=== PATIENT | male | born 1970 | race Caucasian/White ===

== ENCOUNTER 2018-02-05 01:18 | Emergency (ER) | payer BC ==
[2018-02-05] MEDS ORDERED: SODIUM CHLORIDE 0.9% 1,000 ML IV STA (01:24)
[2018-02-05] MEDS ORDERED: MECLIZINE 12.5 MG TAB PO STA (01:25)
[2018-02-05 02:02] LABS: Glucose,Whole Blood 135 mg/dL (75-99)
[2018-02-05 02:05] LABS: Basophils % (A) 0 %; Eosinophils # (A) 0.2 k/uL (0-0.7); Eosinophils % (A) 2 %; HCT 42.4 % (39.0-53.0); HGB 13.9 gm/dL (13.0-17.5); Lymphocytes # (A) 1.3 k/uL (1.0-4.8); Lymphocytes % (A) 13 %; MCH 29.5 pg (25.0-35.0); MCHC 32.9 g/dL (31.0-37.0); MCV 89.8 fL (80.0-100.0); Mean Platelet Volume 7.7; Monocytes # (A) 0.5 k/uL (0-1.0); Monocytes % (A) 5 %; Neutrophils # (A) 7.9 k/uL (1.3-7.7); Neutrophils % (A) 79 %; Platelet Count 289 k/uL (150-450); RBC 4.72 m/uL (4.30-5.90); RDW 13.1 % (11.5-15.5); WBC 9.9 k/uL (3.8-10.6)
--- NOTE | 2018-02-05 02:16 | ED ---
Dizziness HPI - General Chief Complaint: Dizziness Stated Complaint: Dizziness Time Seen by Provider: 02/05/18 01:21 Source: patient, RN notes reviewed Mode of arrival: ambulatory Limitations: no limitations - History of Present Illness Initial Comments: This is a 47-year-old male who presents to the emergency department with chief complaint of dizziness. Patient states that he got out of work 11 PM this evening. When he got out to the parking lot he began to feel dizzy. He states that it felt like everything was spinning. Denies feeling like he was going to pass out. He states he drove home from work and when he got home he got out of his car and vomited in the driveway. He states that he went inside to his bathroom and sat on the toilet. He was unable to get up due to the dizziness. He states that the dizziness is made worse with sudden movements of his head. He admits to associated nausea and vomiting but denies diarrhea or constipation. Denies fevers or chills, chest pain or shortness of breath, diaphoresis, abdominal pain, headache. Patient denies any recent illnesses. - Related Data Previous Rx's Medication Instructions Recorded Meclizine [Antivert] 25 mg PO BID #20 tab 02/05/18 Allergies Allergy/AdvReac Type Severity Reaction Status Date / Time No Known Allergies Allergy Verified 02/05/18 01:36 Review of Systems ROS Statement: Those systems with pertinent positive or pertinent negative responses have been documented in the HPI. ROS Other: All systems not noted in ROS Statement are negative. Past Medical History Past Medical History: Hypertension Additional Past Medical History / Comment(s): denies Past Surgical History: Tonsillectomy Past Psychological History: No Psychological Hx Reported Smoking Status: Never smoker Past Alcohol Use History: Occasional Past Drug Use History: None Reported General Exam - General Exam Comments Initial Comments: General: Awake and alert, well-developed; in no apparent distress. Morbidly obese male resting comfortably on ED stretcher. HEENT: Head atraumatic, normocephalic. Pupils are equal, round and reactive to light. Extraocular movements intact. Horizontal nystagmus is noted bilaterally. Oropharynx moist without erythema or exudate. Bilateral TMs are pearly without effusion. Neck: Supple. Normal ROM. Cardiovascular: Regular rate and rhythm. No murmurs, rubs or gallops. Chest symmetrical. Respiratory: Lungs clear to auscultation bilaterally. No wheezes, rales or rhonchi. Normal respiratory effort with no use of accessory muscles. Abdomen: Soft, non-tender, non-distended. No rigidity, rebound or guarding. Normal bowel sounds in all 4 quadrants. Musculoskeletal: Normal ROM, no tenderness bilateral upper and lower extremities. Ambulating normally. Skin: [place], warm and dry without rashe.s Neurological: Alert and oriented x3. CN II-XII grossly intact. Speech is fluent and answers are appropriate. No focal neuro deficits. Finger-nose testing normal. Heel to newell test normal. Rapid alternating movements normal. Romberg negative. Psychiatric: Normal mood and affect. No overt signs of depression or anxiety noted. Limitations: no limitations Course Vital Signs 02/05/18 02/05/18 02/05/18 01:21 02:18 03:00 Pulse Rate 72 71 69 Respiratory 16 16 16 Rate Blood Pressure 195/99 190/98 194/98 O2 Sat by Pulse 98 99 98 Oximetry 02/05/18 02/05/18 03:07 04:00 Pulse Rate 68 77 Respiratory 18 16 Rate Blood Pressure 199/89 160/80 O2 Sat by Pulse 98 98 Oximetry EKG Findings - EKG Comments: EKG Findings:: 1:50:19. Sinus rhythm with first-degree AV block. Ventricular rate 70 bpm, MN interval 212, QRS duration 100, QT/QTc 416/449. No evidence of ST segment elevation or depression. Medical Decision Making - Medical Decision Making This is a 47-year-old male who presents to the emergency department with chief complaint of acute onset dizziness. Patient describes dizziness as a feeling like the room is spinning. He admits to associated nausea and vomiting. On physical examination, patient is neurologically intact without ataxia. Romberg is negative. Horizontal nystagmus is noted. CBC and CMP were unremarkable. Troponin was negative. EKG revealed normal sinus rhythm with first-degree AV block with no evidence for acute ischemia or infarction. On presentation, patient did have a markedly elevated blood pressure. Patient states that he does have hypertension for which he takes metoprolol one time daily. Patient states that he did take his blood pressure medication yesterday morning. He was given labetalol and hydralazine which stabilized blood pressure to 160/80. Patient was sent down for a computed tomography scan of the brain which revealed no acute abnormalities. While in the emergency department, patient was given IV fluids and antivert. He states that his symptoms have improved and he is no longer feeling dizzy. Based on history, physical exam, ct and lab studies it is most likely that patient is experiencing a peripheral vertigo. Vital signs have stabilized and patient is in no acute distress. He will be discharged home at this time. He will be given prescription for Antivert. He is to follow-up with his primary care provider. Patient is in agreement with plan and voices understanding. All questions were answered. - Lab Data Result diagrams: 02/05/18 01:54 02/05/18 01:54 Lab Results 02/05/18 02/05/18 02/05/18 Range/Units 01:54 01:54 01:54 WBC 9.9 (3.8-10.6) k/uL RBC 4.72 (4.30-5.90) m/uL Hgb 13.9 (13.0-17.5) gm/dL Hct 42.4 (39.0-53.0) % MCV 89.8 (80.0-100.0) fL MCH 29.5 (25.0-35.0) pg MCHC 32.9 (31.0-37.0) g/dL RDW 13.1 (11.5-15.5) % Plt Count 289 (150-450) k/uL Neutrophils % 79 % Lymphocytes % 13 % Monocytes % 5 % Eosinophils % 2 % Basophils % 0 % Neutrophils # 7.9 H (1.3-7.7) k/uL Lymphocytes # 1.3 (1.0-4.8) k/uL Monocytes # 0.5 (0-1.0) k/uL Eosinophils # 0.2 (0-0.7) k/uL Basophils # 0.0 (0-0.2) k/uL PT 10.3 (9.0-12.0) sec INR 1.1 (<1.2) APTT 24.2 (22.0-30.0) sec Sodium 142 (137-145) mmol/L Potassium 4.1 (3.5-5.1) mmol/L Chloride 103 (98-107) mmol/L Carbon Dioxide 23 (22-30) mmol/L Anion Gap 16 mmol/L BUN 12 (9-20) mg/dL Creatinine 0.66 (0.66-1.25) mg/dL Est GFR (CKD-EPI)AfAm >90 (>60 ml/min/1.73 sqM) Est GFR (CKD-EPI)NonAf >90 (>60 ml/min/1.73 sqM) Glucose 163 H (74-99) mg/dL POC Glucose (mg/dL) (75-99) mg/dL POC Glu Linen Grader ID Calcium 8.8 (8.4-10.2) mg/dL Total Bilirubin 0.4 (0.2-1.3) mg/dL AST 42 (17-59) U/L ALT 57 (21-72) U/L Alkaline Phosphatase 96 (38-126) U/L Troponin I (0.000-0.034) ng/mL Total Protein 7.7 (6.3-8.2) g/dL Albumin 4.0 (3.5-5.0) g/dL 02/05/18 02/05/18 Range/Units 01:54 02:00 WBC (3.8-10.6) k/uL RBC (4.30-5.90) m/uL Hgb (13.0-17.5) gm/dL Hct (39.0-53.0) % MCV (80.0-100.0) fL MCH (25.0-35.0) pg MCHC (31.0-37.0) g/dL RDW (11.5-15.5) % Plt Count (150-450) k/uL Neutrophils % % Lymphocytes % % Monocytes % % Eosinophils % % Basophils % % Neutrophils # (1.3-7.7) k/uL Lymphocytes # (1.0-4.8) k/uL Monocytes # (0-1.0) k/uL Eosinophils # (0-0.7) k/uL Basophils # (0-0.2) k/uL PT (9.0-12.0) sec INR (<1.2) APTT (22.0-30.0) sec Sodium (137-145) mmol/L Potassium (3.5-5.1) mmol/L Chloride (98-107) mmol/L Carbon Dioxide (22-30) mmol/L Anion Gap mmol/L BUN (9-20) mg/dL Creatinine (0.66-1.25) mg/dL Est GFR (CKD-EPI)AfAm (>60 ml/min/1.73 sqM) Est GFR (CKD-EPI)NonAf (>60 ml/min/1.73 sqM) Glucose (74-99) mg/dL POC Glucose (mg/dL) 135 H (75-99) mg/dL POC Glu Linen Grader ID Mathieu Lewis Calcium (8.4-10.2) mg/dL Total Bilirubin (0.2-1.3) mg/dL AST (17-59) U/L ALT (21-72) U/L Alkaline Phosphatase (38-126) U/L Troponin I <0.012 (0.000-0.034) ng/mL Total Protein (6.3-8.2) g/dL Albumin (3.5-5.0) g/dL - Radiology Data Radiology results: report reviewed CT brain without contrast conclusion: Minimal right maxillary sinusitis. Otherwise negative computed tomography scan of the brain. Disposition Clinical Impression: Vertigo Disposition: HOME SELF-CARE Condition: Good Instructions: Vertigo (ED), Dizziness (ED) Additional Instructions: Please take medications as prescribed. Please follow up with primary care provider within 1-2 days. Return to emergency department if symptoms should worsen or any concerns arise. Prescriptions: Meclizine [Antivert] 25 mg PO BID #20 tab Is patient prescribed a controlled substance at d/c from ED?: No Referrals: Sanjay Walsh MD [Primary Care Provider] - 1-2 days Time of Disposition: 04:13
[2018-02-05 02:20] LABS: ALT 57 U/L (21-72); AST 42 U/L (17-59); Alkaline Phosphatase 96 U/L (38-126); Anion Gap 16 mmol/L; Blood Urea Nitrogen 12 mg/dL (9-20); Calcium 8.8 mg/dL (8.4-10.2); Carbon Dioxide 23 mmol/L (22-30); Chloride 103 mmol/L (98-107); Glucose 163 mg/dL (74-99); INR 1.1 (<1.2); Partial Thromboplastin Time 24.2 sec (22.0-30.0); Potassium 4.1 mmol/L (3.5-5.1); Prothrombin Time 10.3 sec (9.0-12.0); Sodium 142 mmol/L (137-145); Total Bilirubin 0.4 mg/dL (0.2-1.3); Total Protein 7.7 g/dL (6.3-8.2)
[2018-02-05] MEDS ORDERED: LABETALOL 5 MG/ML VIAL MDV IVP STA (02:57)
--- NOTE | 2018-02-05 03:07 | CT ---
EXAMINATION TYPE: CT brain wo con DATE OF EXAM: 02/05/2018 COMPARISON: NONE HISTORY: DIZZINESS TODAY CT DLP: 820.2 mGycm. Automated Exposure Control for Dose Reduction was Utilized. TECHNIQUE: CT scan of the head is performed without contrast. FINDINGS: Ventricles of normal size. There is no mass effect nor midline shift. There is no sign of intracranial hemorrhage. Calvarium is intact. There is mild mucosal thickening in the right maxillary sinus. There is no evidence of posterior fossa mass. CONCLUSION: Minimal right maxillary sinusitis. Otherwise negative CT scan of the brain.
[2018-02-05] MEDS ORDERED: hydrALAZINE HCL 20 MG/ML 1 ML VIAL IVP STA (03:50)
[2018-02-05 04:12] VITALS: BP 160/80; PULSE 77; RESP 16
== END 2018-02-05 04:21 | disposition home or self-care (01) ==
LOC: EC 01:18
DX: R42 Dizziness and giddiness (principal); I10 Essential (primary) hypertension; R11.2 Nausea with vomiting, unspecified; I44.0 Atrioventricular block, first degree; E66.01 Morbid (severe) obesity due to excess calories; Z68.43 Body mass index [BMI] 50.0-59.9, adult
CPT/HCPCS: 99285; 96374; 96375; 96361; 36415; 93005; 80053; 84484; 85025; 85610; 85730; 70450; J0360

== ENCOUNTER 2021-02-10 12:13 | Inpatient (IN) | payer BC ==
[2021-02-10 12:26] LABS: Glucose,Whole Blood 205 mg/dL (75-99)
[2021-02-10] MEDS ORDERED: ACETAMINOPHEN TAB 500 MG TAB PO STA (12:26)
[2021-02-10] MEDS ORDERED: IBUPROFEN 600 MG TAB PO STA (12:26)
[2021-02-10] MEDS ORDERED: PIPERACILLIN-TAZOBACTAM 3.375 GM in SODIUM CHLORIDE 0.9% 100 ML IVPB STA (12:26)
--- NOTE | 2021-02-10 12:32 | ED ---
General Adult HPI - General Chief complaint: Altered Mental Status Stated complaint: altered/possible infection Time Seen by Provider: 02/10/21 12:15 Source: patient, RN notes reviewed, old records reviewed Mode of arrival: ambulatory Limitations: altered mental status - History of Present Illness Initial comments: This is a 50-year-old male who presents emergency Department febrile and altered. According to his work he did not show up today so the a well check on her and they found him somewhat confused and stating he feels just extremely weak. Patient denies any areas of pain. Patient denies any headache patient denies numbness focal weakness. Patient denies any chest pain difficult breathing shortness of breath. Patient denies any abdominal pain patient denies nausea vomiting diarrhea. Patient denies any recent injury or trauma - Related Data Previous Rx's Medication Instructions Recorded Meclizine [Antivert] 25 mg PO BID #20 tab 02/05/18 Allergies Allergy/AdvReac Type Severity Reaction Status Date / Time No Known Allergies Allergy Verified 02/10/21 12:22 Review of Systems ROS Statement: Those systems with pertinent positive or pertinent negative responses have been documented in the HPI. ROS Other: All systems not noted in ROS Statement are negative. Past Medical History Past Medical History: Hypertension Additional Past Medical History / Comment(s): denies History of Any Multi-Drug Resistant Organisms: None Reported Past Surgical History: Tonsillectomy Past Psychological History: No Psychological Hx Reported Smoking Status: Never smoker Past Alcohol Use History: Occasional Past Drug Use History: None Reported General Exam - General Exam Comments Initial Comments: GENERAL: Patient is well-developed and well-nourished. Patient is nontoxic and well- hydrated and is in mild distress. ENT: Neck is soft and supple. No significant lymphadenopathy is noted. Oropharynx is clear. Moist mucous membranes. Neck has full range of motion without eliciting any pain. EYES: The sclera were anicteric and conjunctiva were pink and moist. Extraocular movements were intact and pupils were equal round and reactive to light. Eyelids were unremarkable. PULMONARY: Unlabored respirations. Good breath sounds bilaterally. No audible rales rhonchi or wheezing was noted. CARDIOVASCULAR: There is a regular rate and rhythm without any murmurs gallops or rubs. ABDOMEN: Soft and nontender with normal bowel sounds. The patient's pannus is extremely excoriated skin which looks like secondary to candidiasis SKIN: Skin is clear with no lesions or rashes and otherwise unremarkable. NEUROLOGIC: Patient is alert and oriented 2. Cranial nerves II through XII are grossly intact. Motor and sensory are also intact. Normal speech, volume and content. Symmetrical smile. MUSCULOSKELETAL: Normal extremities with adequate strength and full range of motion. LYMPHATICS: No significant lymphadenopathy is noted PSYCHIATRIC: Unable to evaluate Limitations: no limitations Course Vital Signs 02/10/21 02/10/21 12:14 13:47 Temperature 103.1 F H 101.2 F H Pulse Rate 140 H 135 H Respiratory 24 20 Rate Blood Pressure 141/86 118/64 O2 Sat by Pulse 95 96 Oximetry Medical Decision Making - Medical Decision Making Patient is ideal body weight is 67 kg EKG shows a sinus tachycardia with occasional PACs at a rate of 145 bpm OR interval 226 QRS is 84 Q-T intervals 296 QTC is 459. Patient's EKG shows no ST segment elevation or depression. Chest x-ray shows retrograde infiltrate consistent with pneumonia. Patient was started on Zosyn. Patient is septic and was given 2 L of fluid which meets criteria for 30 miles per KG. I spoke with the [facility] hospitalist agreed to admit the patient admitted the patient wrote admitting orders - Lab Data Result diagrams: 02/10/21 12:40 02/10/21 12:40 Lab Results 02/10/21 02/10/21 02/10/21 Range/Units 12:23 12:40 12:40 WBC 15.0 H (3.8-10.6) k/uL RBC 4.79 (4.30-5.90) m/uL Hgb 14.3 (13.0-17.5) gm/dL Hct 42.7 (39.0-53.0) % MCV 89.2 (80.0-100.0) fL MCH 29.8 (25.0-35.0) pg MCHC 33.4 (31.0-37.0) g/dL RDW 13.7 (11.5-15.5) % Plt Count 198 (150-450) k/uL MPV 10.3 Neutrophils % 87 % Lymphocytes % 6 % Monocytes % 5 % Eosinophils % 1 % Basophils % 0 % Neutrophils # 13.0 H (1.3-7.7) k/uL Lymphocytes # 0.8 L (1.0-4.8) k/uL Monocytes # 0.8 (0-1.0) k/uL Eosinophils # 0.1 (0-0.7) k/uL Basophils # 0.0 (0-0.2) k/uL PT 10.8 (9.0-12.0) sec INR 1.0 (<1.2) APTT 26.3 (22.0-30.0) sec Sodium (137-145) mmol/L Potassium (3.5-5.1) mmol/L Chloride (98-107) mmol/L Carbon Dioxide (22-30) mmol/L Anion Gap mmol/L BUN (9-20) mg/dL Creatinine (0.66-1.25) mg/dL Est GFR (CKD-EPI)AfAm (>60 ml/min/1.73 sqM) Est GFR (CKD-EPI)NonAf (>60 ml/min/1.73 sqM) Glucose (74-99) mg/dL POC Glucose (mg/dL) 205 H (75-99) mg/dL POC Glu Vacuum Bottle Assembler ID Priyank Chandler Plasma Lactic Acid Sammy (0.7-2.0) mmol/L Calcium (8.4-10.2) mg/dL Total Bilirubin (0.2-1.3) mg/dL AST (17-59) U/L ALT (4-49) U/L Alkaline Phosphatase (38-126) U/L Total Protein (6.3-8.2) g/dL Albumin (3.5-5.0) g/dL Urine Color Urine Appearance (Clear) Urine pH (5.0-8.0) Ur Specific Odell (1.001-1.035) Urine Protein (Negative) Urine Glucose (UA) (Negative) Urine Ketones (Negative) Urine Blood (Negative) Urine Nitrite (Negative) Urine Bilirubin (Negative) Urine Urobilinogen (<2.0) mg/dL Ur Leukocyte Esterase (Negative) Urine RBC (0-5) /hpf Urine WBC (0-5) /hpf Ur Squamous Epith Cells (0-4) /hpf Amorphous Sediment (None) /hpf Urine Bacteria (None) /hpf Hyaline Casts (0-2) /lpf Granular Casts (0) /lpf Urine Mucus (None) /hpf Coronavirus (PCR) (Not Detectd) 02/10/21 02/10/21 02/10/21 Range/Units 12:40 12:40 12:40 WBC (3.8-10.6) k/uL RBC (4.30-5.90) m/uL Hgb (13.0-17.5) gm/dL Hct (39.0-53.0) % MCV (80.0-100.0) fL MCH (25.0-35.0) pg MCHC (31.0-37.0) g/dL RDW (11.5-15.5) % Plt Count (150-450) k/uL MPV Neutrophils % % Lymphocytes % % Monocytes % % Eosinophils % % Basophils % % Neutrophils # (1.3-7.7) k/uL Lymphocytes # (1.0-4.8) k/uL Monocytes # (0-1.0) k/uL Eosinophils # (0-0.7) k/uL Basophils # (0-0.2) k/uL PT (9.0-12.0) sec INR (<1.2) APTT (22.0-30.0) sec Sodium 130 L (137-145) mmol/L Potassium 4.1 (3.5-5.1) mmol/L Chloride 100 (98-107) mmol/L Carbon Dioxide 17 L (22-30) mmol/L Anion Gap 13 mmol/L BUN 13 (9-20) mg/dL Creatinine 1.14 (0.66-1.25) mg/dL Est GFR (CKD-EPI)AfAm 86 (>60 ml/min/1.73 sqM) Est GFR (CKD-EPI)NonAf 74 (>60 ml/min/1.73 sqM) Glucose 226 H (74-99) mg/dL POC Glucose (mg/dL) (75-99) mg/dL POC Glu Vacuum Bottle Assembler ID Plasma Lactic Acid Sammy 3.6 H* (0.7-2.0) mmol/L Calcium 8.5 (8.4-10.2) mg/dL Total Bilirubin 0.9 (0.2-1.3) mg/dL AST 47 (17-59) U/L ALT 27 (4-49) U/L Alkaline Phosphatase 82 (38-126) U/L Total Protein 7.4 (6.3-8.2) g/dL Albumin 3.6 (3.5-5.0) g/dL Urine Color Urine Appearance (Clear) Urine pH (5.0-8.0) Ur Specific [place]ell (1.001-1.035) Urine Protein (Negative) Urine Glucose (UA) (Negative) Urine Ketones (Negative) Urine Blood (Negative) Urine Nitrite (Negative) Urine Bilirubin (Negative) Urine Urobilinogen (<2.0) mg/dL Ur Leukocyte Esterase (Negative) Urine RBC (0-5) /hpf Urine WBC (0-5) /hpf Ur Squamous Epith Cells (0-4) /hpf Amorphous Sediment (None) /hpf Urine Bacteria (None) /hpf Hyaline Casts (0-2) /lpf Granular Casts (0) /lpf Urine Mucus (None) /hpf Coronavirus (PCR) Not Detected (Not Detectd) 02/10/21 Range/Units 12:51 WBC (3.8-10.6) k/uL RBC (4.30-5.90) m/uL Hgb (13.0-17.5) gm/dL Hct (39.0-53.0) % MCV (80.0-100.0) fL MCH (25.0-35.0) pg MCHC (31.0-37.0) g/dL RDW (11.5-15.5) % Plt Count (150-450) k/uL MPV Neutrophils % % Lymphocytes % % Monocytes % % Eosinophils % % Basophils % % Neutrophils # (1.3-7.7) k/uL Lymphocytes # (1.0-4.8) k/uL Monocytes # (0-1.0) k/uL Eosinophils # (0-0.7) k/uL Basophils # (0-0.2) k/uL PT (9.0-12.0) sec INR (<1.2) APTT (22.0-30.0) sec Sodium (137-145) mmol/L Potassium (3.5-5.1) mmol/L Chloride (98-107) mmol/L Carbon Dioxide (22-30) mmol/L Anion Gap mmol/L BUN (9-20) mg/dL Creatinine (0.66-1.25) mg/dL Est GFR (CKD-EPI)AfAm (>60 ml/min/1.73 sqM) Est GFR (CKD-EPI)NonAf (>60 ml/min/1.73 sqM) Glucose (74-99) mg/dL POC Glucose (mg/dL) (75-99) mg/dL POC Glu Vacuum Bottle Assembler ID Plasma Lactic Acid Sammy (0.7-2.0) mmol/L Calcium (8.4-10.2) mg/dL Total Bilirubin (0.2-1.3) mg/dL AST (17-59) U/L ALT (4-49) U/L Alkaline Phosphatase (38-126) U/L Total Protein (6.3-8.2) g/dL Albumin (3.5-5.0) g/dL Urine Color Dark Yellow Urine Appearance Cloudy (Clear) Urine pH 5.5 (5.0-8.0) Ur Specific [place]ell 1.027 (1.001-1.035) Urine Protein 2+ H (Negative) Urine Glucose (UA) 2+ H (Negative) Urine Ketones Trace H (Negative) Urine Blood Moderate H (Negative) Urine Nitrite Negative (Negative) Urine Bilirubin Negative (Negative) Urine Urobilinogen 3.0 (<2.0) mg/dL Ur Leukocyte Esterase Negative (Negative) Urine RBC 1 (0-5) /hpf Urine WBC 4 (0-5) /hpf Ur Squamous Epith Cells <1 (0-4) /hpf Amorphous Sediment Occasional H (None) /hpf Urine Bacteria Occasional H (None) /hpf Hyaline Casts 10 H (0-2) /lpf Granular Casts 4 (0) /lpf Urine Mucus Rare H (None) /hpf Coronavirus (PCR) (Not Detectd) Critical Care Time Critical Care Time: Yes Total Critical Care Time: 35 Disposition Clinical Impression: Altered mental status, Pneumonia, Sepsis Disposition: ADMITTED IP TO THIS HOSP Referrals: Sanjay Walsh MD [Primary Care Provider] - 1-2 days Time of Disposition: 14:14
[2021-02-10] MEDS: SODIUM CHLORIDE 0.9% 500 ML 500 ML IV SCH ×4 (12:54→14:41)
[2021-02-10 13:18] LABS: Partial Thromboplastin Time 26.3 sec (22.0-30.0); Prothrombin Time 10.8 sec (9.0-12.0)
[2021-02-10 13:21] LABS: Basophils % (A) 0 %; Eosinophils # (A) 0.1 k/uL (0-0.7); Eosinophils % (A) 1 %; HCT 42.7 % (39.0-53.0); HGB 14.3 gm/dL (13.0-17.5); Lymphocytes # (A) 0.8 k/uL (1.0-4.8); Lymphocytes % (A) 6 %; MCH 29.8 pg (25.0-35.0); MCHC 33.4 g/dL (31.0-37.0); MCV 89.2 fL (80.0-100.0); Mean Platelet Volume 10.3; Monocytes # (A) 0.8 k/uL (0-1.0); Monocytes % (A) 5 %; Neutrophils % (A) 87 %; Platelet Count 198 k/uL (150-450); RBC 4.79 m/uL (4.30-5.90); RDW 13.7 % (11.5-15.5)
[2021-02-10 13:22] LABS: Albumin 3.6 g/dL (3.5-5.0); Calcium 8.5 mg/dL (8.4-10.2); Potassium 4.1 mmol/L (3.5-5.1); Total Bilirubin 0.9 mg/dL (0.2-1.3); Total Protein 7.4 g/dL (6.3-8.2)
[2021-02-10 13:26] LABS: Amorphous Sediment,Urine Occasional /hpf; Appearance,Urine Cloudy (Clear); Bacteria,Urine Occasional /hpf; Bilirubin,Urine Negative (Negative); Blood,Urine Moderate (Negative); Color,Urine Dark Yellow; Glucose,Urine (UA) 2+ (Negative); Granular Casts,Urine 4 /lpf (0); Hyaline Casts,Urine 10 /lpf (0-2); Ketones,Urine Trace (Negative); Leukocyte Esterase,Urine Negative (Negative); Mucus,Urine Rare /hpf; Nitrite,Urine Negative (Negative); PH, Urine 5.5 (5.0-8.0); Protein,Urine 2+ (Negative); RBC,Urine 1 /hpf (0-5); Specific Gravity,Urine 1.027 (1.001-1.035); Squamous Epithelial Cell,Urine <1 /hpf (0-4); WBC,Urine 4 /hpf (0-5)
--- NOTE | 2021-02-10 13:52 | CT ---
EXAMINATION TYPE: CT brain wo con DATE OF EXAM: 02/10/2021 HISTORY: Altered mental status, Fever CT DLP: 1115.4 mGycm. Automated Exposure Control for Dose Reduction was Utilized. TECHNIQUE: CT scan of the head is performed without contrast. COMPARISON: CT brain February 05, 2018. FINDINGS: There is no acute intracranial hemorrhage or midline shift identified. There is mild diff use ventricular and sulcal prominence consistent with diffuse age-related cerebral atrophy. There is mild low-attenuation in the periventricular white matter consistent with chronic small vessel ischem ic change. The globes are intact and the visualized sinuses are clear. IMPRESSION: No acute intracranial hemorrhage or midline shift. There is mild diffuse age-related ce rebral atrophy and chronic small vessel ischemic change redemonstrated. No significant change from p rior CT.
--- NOTE | 2021-02-10 13:56 | XR ---
EXAMINATION TYPE: XR chest 2V DATE OF EXAM: 02/10/2021 COMPARISON: NONE HISTORY: Fever TECHNIQUE: Frontal and lateral views of the chest are obtained. FINDINGS: Low lung volumes. Heart size is within upper limits of normal. There is a retrocardiac air space opacity on the lateral view which may represent developing pneumonia. A small pleural effusion is not excluded. No pneumothorax., IMPRESSION: 1. Heart size is at the upper limits of normal. 2. Retrocardiac airspace opacity best seen on lateral view may represent developing pneumonia. A smal l pleural effusion is not excluded.
[2021-02-10] MEDS ORDERED: PNEUMONIA PROTOCOL UTILIZED 1 EACH MISC PO PRN (14:14)
[2021-02-10] MEDS ORDERED: AZITHROMYCIN 500 MG in SODIUM CHLORIDE 0.9% 250 ML IVPB STA (14:14)
[2021-02-10] MEDS: SODIUM CHLORIDE 0.9% 1,000 ML IV SCH ×2 (14:42→21:46)
--- NOTE | 2021-02-10 17:34 | P.HPIM ---
History of Present Illness 50-year-old male came in with my some altered mental status and found to have fever. Patient was limited confused when he came to ER. Patient the did not show up to work for couple days after which his boss sent to someone to check came and patient was found to be extremely weak bit confused and drowsy and sleeping all the time. Patient denied any cough, but was having significant generalized weakness. Patient denied any shortness of breath or chest pain. Patient had a chest x-ray which showed retrocardiac short of consistent with the pneumonia. Patient had high-grade fever. Patient was vaccinated for Covid, Covid 19 PCR was negative. Review of Systems REVIEW OF SYSTEMS: CONSTITUTIONAL: As mentioned in HPI. HEENT: No recent visual problems or hearing problems. Denied any sore throat. CARDIOVASCULAR: No chest pain, orthopnea, PND, no palpitations, no syncope. PULMONARY: No shortness of breath, no cough, no hemoptysis. GASTROINTESTINAL: No diarrhea, no nausea, no vomiting, no abdominal pain. NEUROLOGICAL: No headaches, no weakness, no numbness. HEMATOLOGICAL: Denies any bleeding or petechiae. GENITOURINARY: Denies any burning micturition, frequency, or urgency. MUSCULOSKELETAL/RHEUMATOLOGICAL: Denies any joint pain, swelling, or any muscle pain. ENDOCRINE: Denies any polyuria or polydipsia. The rest of the 14-point review of systems is negative. Past Medical History Past Medical History: Hypertension Additional Past Medical History / Comment(s): denies History of Any Multi-Drug Resistant Organisms: None Reported Past Surgical History: Tonsillectomy Past Psychological History: No Psychological Hx Reported Smoking Status: Never smoker Past Alcohol Use History: Occasional Past Drug Use History: None Reported Medications and Allergies Home Medications Medication Instructions Recorded Confirmed Type Metoprolol Succinate [Toprol XL] 50 mg PO DAILY 02/10/21 02/10/21 History Allergies Allergy/AdvReac Type Severity Reaction Status Date / Time No Known Allergies Allergy Verified 02/10/21 14:59 Physical Exam Vitals: Vital Signs Temp Pulse Resp BP Pulse Ox 02/10/21 17:25 98.7 F 104 H 18 108/77 96 02/10/21 13:47 101.2 F H 135 H 20 118/64 96 02/10/21 12:14 103.1 F H 140 H 24 141/86 95 Intake and Output 02/10/21 02/10/21 02/10/21 06:59 14:59 22:59 Other: Weight 145.15 kg PHYSICAL EXAMINATION: GENERAL: The patient is alert and oriented x3, not in any acute distress. Obese patient is diaphoretic HEENT: Pupils are round and equally reacting to light. EOMI. No scleral icterus. No conjunctival pallor. Normocephalic, atraumatic. No pharyngeal erythema. No thyromegaly. CARDIOVASCULAR: S1 and S2 present. No murmurs, rubs, or gallops. PULMONARY: Chest is clear to auscultation, no wheezing or crackles. ABDOMEN: Soft, nontender, nondistended, normoactive bowel sounds. No palpable organomegaly. MUSCULOSKELETAL: No joint swelling or deformity. EXTREMITIES: No cyanosis, clubbing, or pedal edema. NEUROLOGICAL: Gross neurological examination did not reveal any focal deficits. SKIN: No rashes. Results CBC & Chem 7: 02/10/21 12:40 02/10/21 12:40 Labs: Abnormal Lab Results - Last 24 Hours (Table) 02/10/21 02/10/21 02/10/21 Range/Units 12:23 12:40 12:40 WBC 15.0 H (3.8-10.6) k/uL Neutrophils # 13.0 H (1.3-7.7) k/uL Lymphocytes # 0.8 L (1.0-4.8) k/uL Sodium 130 L (137-145) mmol/L Carbon Dioxide 17 L (22-30) mmol/L Glucose 226 H (74-99) mg/dL POC Glucose (mg/dL) 205 H (75-99) mg/dL Plasma Lactic Acid Sammy (0.7-2.0) mmol/L Urine Protein (Negative) Urine Glucose (UA) (Negative) Urine Ketones (Negative) Urine Blood (Negative) Amorphous Sediment (None) /hpf Urine Bacteria (None) /hpf Hyaline Casts (0-2) /lpf Urine Mucus (None) /hpf 02/10/21 02/10/21 Range/Units 12:40 12:51 WBC (3.8-10.6) k/uL Neutrophils # (1.3-7.7) k/uL Lymphocytes # (1.0-4.8) k/uL Sodium (137-145) mmol/L Carbon Dioxide (22-30) mmol/L Glucose (74-99) mg/dL POC Glucose (mg/dL) (75-99) mg/dL Plasma Lactic Acid Sammy 3.6 H* (0.7-2.0) mmol/L Urine Protein 2+ H (Negative) Urine Glucose (UA) 2+ H (Negative) Urine Ketones Trace H (Negative) Urine Blood Moderate H (Negative) Amorphous Sediment Occasional H (None) /hpf Urine Bacteria Occasional H (None) /hpf Hyaline Casts 10 H (0-2) /lpf Urine Mucus Rare H (None) /hpf Assessment and Plan Plan: Community-acquired pneumonia and severe sepsis secondary to pneumonia: Patient will be continued on IV fluids at [address], patient was started on Rocephin a nd azithromycin which will be continued blood cultures sputum cultures are pending. -Hypovolemic hyponatremia: Patient will be continued on IV fluids -Anion gap metabolic acidosis secondary to sepsis lactic acidosis improved lactic acid now -Elevated blood sugars will obtain hemoglobin C patient was started on sliding scale insulin -Mild acute renal failure secondary to sepsis -Hypertension- -DVT prophylaxis with Lovenox GI prophylaxis with Pepcid
[2021-02-10] MEDS: METOPROLOL SUCCINATE (ER) 50 MG TAB.ER.24H PO SCH (19:46)
[2021-02-10] MEDS: FAMOTIDINE 20 MG TAB PO SCH (19:46)
[2021-02-10 19:54] LABS: Glucose,Whole Blood 186 mg/dL (75-99)
[2021-02-10] MEDS: INSULIN ASPART (NovoLOG) 100 UNIT/ML VIAL SQ SCH ×2 (21:46→21:52)
[2021-02-11] MEDS: PIPERACILLIN-TAZOBACTAM 3.375 GM in SODIUM CHLORIDE 0.9% 100 ML IVPB SCH ×2 (00:49→09:54)
[2021-02-11] MEDS: SODIUM CHLORIDE 0.9% 1,000 ML IV SCH ×2 (05:13→17:51)
[2021-02-11 07:00] LABS: Glucose,Whole Blood 121 mg/dL (75-99)
[2021-02-11] MEDS: INSULIN ASPART (NovoLOG) 100 UNIT/ML VIAL SQ SCH ×4 (08:23→21:31)
--- NOTE | 2021-02-11 08:30 | XR ---
EXAMINATION TYPE: XR chest 1V DATE OF EXAM: 02/11/2021 COMPARISON: NONE HISTORY: Fever possible covid TECHNIQUE: Single frontal view of the chest is obtained. FINDINGS: Portable upright AP view of the chest was obtained. Heart size is within upper normal limit s. There is a focal air space opacity in the right lung base suggestive of developing pneumonia. The left lung is clear. No pleural effusion or pneumothorax. IMPRESSION: 1. Focal air space opacity in the right lung base suggestive of developing pneumonia.
[2021-02-11] MEDS: ENOXAPARIN 40 MG/0.4 ML SYRINGE SQ SCH (09:54)
[2021-02-11] MEDS: METOPROLOL SUCCINATE (ER) 50 MG TAB.ER.24H PO SCH (09:55)
[2021-02-11 09:59] LABS: HCT 39.8 % (39.6-50.0); HGB 12.9 g/dL (13.0-17.0); MCH 29.6 pg (27.0-32.0); MCHC 32.4 g/dL (32.0-37.0); MCV 91.3 fL (80.0-97.0); Mean Platelet Volume 12.6 fL (9.5-12.2); Platelet Count 175 X 10*3/uL (140-440); RBC 4.36 X 10*6/uL (4.40-5.60); RDW 13.9 % (11.5-14.5); WBC 8.95 X 10*3/uL (4.50-10.00)
[2021-02-11] MEDS: FAMOTIDINE 20 MG TAB PO SCH ×2 (10:00→20:58)
[2021-02-11 11:03] LABS: African American GFR (CKD) 66.5 (60.0-200.0); Anion Gap 11.5 mmol/L (4.00-12.00); BUN/Creat Ratio 15.71 Ratio (12.00-20.00); Calcium 7.9 mg/dL (8.7-10.3); Carbon Dioxide 20.5 mmol/L (21.6-31.8); Non-African American GFR(CKD) 57.4 (60.0-200.0); Potassium 4.4 mmol/L (3.5-5.5)
[2021-02-11 11:16] LABS: Glucose,Whole Blood 117 mg/dL (75-99)
[2021-02-11 14:42] LABS: Hemoglobin A1C 6.3 % (4.0-6.0)
[2021-02-11] MEDS ORDERED: AZITHROMYCIN 500 MG in SODIUM CHLORIDE 0.9% 250 ML IVPB SCH (16:00)
[2021-02-11 16:43] LABS: Glucose,Whole Blood 111 mg/dL (75-99)
--- NOTE | 2021-02-11 16:55 | P.PN ---
Subjective Patient is admitted for community-acquired pneumonia 50-year-old male came in with my some altered mental status and found to have fever. Patient was limited confused when he came to ER. Patient the did not show up to work for couple days after which his boss sent to someone to check came and patient was found to be extremely weak bit confused and drowsy and sleeping all the time. Patient denied any cough, but was having significant generalized weakness. Patient denied any shortness of breath or chest pain. Patient had a chest x-ray which showed retrocardiac short of consistent with the pneumonia. Patient had high-grade fever. Patient was vaccinated for Covid, Covid 19 PCR was negative. 02/11/2021 Patient is still having fevers although patient is only having low-grade fever yesterday patient'S creatinine went up discontinuing ibuprofen which was started in ER yesterday. Patient will be switched to Rocephin 2 g we'll continue with azithromycin. So far sputum cultures and blood cultures are negative. Patient although overall feels better Constitutional: Denied any fatigue denied any fever. Cardio vascular: denied any chest pain, palpitations Gastrointestinal denied any nausea vomiting Pulmonary: As mentioned in HPI Neurologic denied any new focal deficits All inpatient medications were reviewed and appropriate changes in these medications as dictated in the interval history and assessment and plan. Objective - Vital Signs Vital signs: Vital Signs Temp 103.2 F H 02/11/21 13:53 Pulse 98 02/11/21 13:53 Resp 24 02/11/21 13:53 BP 145/81 02/11/21 13:53 Pulse Ox 95 02/11/21 13:53 Intake & Output 02/10/21 02/11/21 02/11/21 18:59 06:59 18:59 Intake Total 2360 Balance 2360 Weight 145.15 kg Intake: Intake, IV Titration 1660 Amount Piperacillin-Tazobactam 3 100 .375 gm In Sodium Chloride 0.9% 100 ml @ 25 mls/hr IVPB Q8HR [facility] Rx# :[id number] Sodium Chloride 0.9% 1, 1560 000 ml @ 130 mls/hr IV . Q7H42M [facility] Rx#:[id number] Oral 700 Other: Voiding Method Toilet # Voids 2 - Exam PHYSICAL EXAMINATION: GENERAL: The patient is alert and oriented x3, not in any acute distress. Well developed, well nourished. HEENT: Pupils are round and equally reacting to light. EOMI. No scleral icterus. No conjunctival pallor. Normocephalic, atraumatic. No pharyngeal erythema. No thyromegaly. CARDIOVASCULAR: S1 and S2 present. No murmurs, rubs, or gallops. PULMONARY: Chest is clear to auscultation, no wheezing or crackles. ABDOMEN: Soft, nontender, nondistended, normoactive bowel sounds. No palpable organomegaly. MUSCULOSKELETAL: No joint swelling or deformity. EXTREMITIES: No cyanosis, clubbing, or pedal edema. NEUROLOGICAL: Gross neurological examination did not reveal any focal deficits. SKIN: No rashes. - Labs CBC & Chem 7: 02/11/21 05:45 02/11/21 05:45 Labs: Abnormal Lab Results - Last 24 Hours (Table) 02/10/21 02/11/21 02/11/21 Range/Units 19:53 05:45 05:45 RBC 4.36 L (4.40-5.60) X 10*6/uL Hgb 12.9 L (13.0-17.0) g/dL MPV 12.6 H (9.5-12.2) fL Carbon Dioxide (21.6-31.8) mmol/L Est GFR (CKD-EPI)NonAf (60.0-200.0) Glucose (70-110) mg/dL POC Glucose (mg/dL) 186 H (75-99) mg/dL Hemoglobin A1c 6.3 H (4.0-6.0) % Calcium (8.7-10.3) mg/dL 02/11/21 02/11/21 02/11/21 Range/Units 05:45 06:59 11:15 RBC (4.40-5.60) X 10*6/uL Hgb (13.0-17.0) g/dL MPV (9.5-12.2) fL Carbon Dioxide 20.5 L (21.6-31.8) mmol/L Est GFR (CKD-EPI)NonAf 57.4 L (60.0-200.0) Glucose 111 H (70-110) mg/dL POC Glucose (mg/dL) 121 H 117 H (75-99) mg/dL Hemoglobin A1c (4.0-6.0) % Calcium 7.9 L (8.7-10.3) mg/dL 02/11/21 Range/Units 16:42 RBC (4.40-5.60) X 10*6/uL Hgb (13.0-17.0) g/dL MPV (9.5-12.2) fL Carbon Dioxide (21.6-31.8) mmol/L Est GFR (CKD-EPI)NonAf (60.0-200.0) Glucose (70-110) mg/dL POC Glucose (mg/dL) 111 H (75-99) mg/dL Hemoglobin A1c (4.0-6.0) % Calcium (8.7-10.3) mg/dL Microbiology - Last 24 Hours (Table) 02/10/21 14:00 Blood Culture - Preliminary Blood No Growth after 24 hours 02/10/21 13:38 Blood Culture - Preliminary Blood No Growth after 24 hours Assessment and Plan Plan: Community-acquired pneumonia and severe sepsis secondary to pneumonia: Patient will be continued on IV fluids at [address], patient was started on Rocephin and azithromycin which will be continued blood cultures sputum cultures are pending. -Hypovolemic hyponatremia: Improved with IV fluids -Anion gap metabolic acidosis secondary to sepsis lactic acidosis improved lactic acid now -Elevated blood sugars , hemoglobin A1c is only 6.3 consistent with prediabetes. Her blood sugars are probably transmitted secondary to sepsis -Mild acute renal failure secondary to sepsis discontinuing nonsteroidal anti- inflammatory medications -Hypertension- -DVT prophylaxis with Lovenox GI prophylaxis with Pepcid
[2021-02-11] MEDS ORDERED: ACETAMINOPHEN TAB 325 MG TAB PO PRN (17:54)
[2021-02-11 21:16] LABS: Glucose,Whole Blood 97 mg/dL (75-99)
[2021-02-12] MEDS: SODIUM CHLORIDE 0.9% 1,000 ML IV SCH ×3 (07:16→12:26)
[2021-02-12 07:18] LABS: Glucose,Whole Blood 100 mg/dL (75-99)
[2021-02-12] MEDS: INSULIN ASPART (NovoLOG) 100 UNIT/ML VIAL SQ SCH ×4 (07:19→20:34)
[2021-02-12] MEDS: ENOXAPARIN 40 MG/0.4 ML SYRINGE SQ SCH (08:51)
[2021-02-12] MEDS: FAMOTIDINE 20 MG TAB PO SCH ×2 (08:51→20:59)
[2021-02-12] MEDS: METOPROLOL SUCCINATE (ER) 50 MG TAB.ER.24H PO SCH (08:51)
[2021-02-12] MEDS: AZITHROMYCIN 500 MG TAB PO SCH (10:00)
[2021-02-12 11:18] LABS: HCT 40.1 % (39.6-50.0); HGB 13.2 g/dL (13.0-17.0); MCH 30.1 pg (27.0-32.0); MCHC 32.9 g/dL (32.0-37.0); MCV 91.6 fL (80.0-97.0); Mean Platelet Volume 12.9 fL (9.5-12.2); Platelet Count 177 X 10*3/uL (140-440); RBC 4.38 X 10*6/uL (4.40-5.60); RDW 14.3 % (11.5-14.5); WBC 6.96 X 10*3/uL (4.50-10.00)
[2021-02-12 11:50] LABS: Glucose,Whole Blood 91 mg/dL (75-99)
[2021-02-12 14:01] LABS: African American GFR (CKD) 80.1 (60.0-200.0); Anion Gap 12.5 mmol/L (4.00-12.00); BUN/Creat Ratio 16.67 Ratio (12.00-20.00); Calcium 7.6 mg/dL (8.7-10.3); Carbon Dioxide 19.5 mmol/L (21.6-31.8); Non-African American GFR(CKD) 69.1 (60.0-200.0); Potassium 3.7 mmol/L (3.5-5.5)
--- NOTE | 2021-02-12 14:16 | P.PN ---
Subjective Patient is admitted for community-acquired pneumonia 50-year-old male came in with my some altered mental status and found to have fever. Patient was limited confused when he came to ER. Patient the did not show up to work for couple days after which his boss sent to someone to check came and patient was found to be extremely weak bit confused and drowsy and sleeping all the time. Patient denied any cough, but was having significant generalized weakness. Patient denied any shortness of breath or chest pain. Patient had a chest x-ray which showed retrocardiac short of consistent with the pneumonia. Patient had high-grade fever. Patient was vaccinated for Covid, Covid 19 PCR was negative. 02/11/2021 Patient is still having fevers although patient is only having low-grade fever yesterday patient'S creatinine went up discontinuing ibuprofen which was started in ER yesterday. Patient will be switched to Rocephin 2 g we'll continue with azithromycin. So far sputum cultures and blood cultures are negative. Patient although overall feels better 02/12/2021 Patient continues to have fever today patient will be continued on IV antibiotics we'll reassess him tomorrow. Patient's creatinine improved sodium is down to 129 continue with IV fluids and will reassess basic metabolic profile and CBC tomorrow. Blood cultures are so far negative sputum cultures were not obtained Constitutional: Denied any fatigue denied any fever. Cardio vascular: denied any chest pain, palpitations Gastrointestinal denied any nausea vomiting Pulmonary: As mentioned in HPI Neurologic denied any new focal deficits All inpatient medications were reviewed and appropriate changes in these medications as dictated in the interval history and assessment and plan. Objective - Vital Signs Vital signs: Vital Signs Temp 100.9 F H 02/12/21 07:46 Pulse 107 H 02/12/21 07:46 Resp 20 02/12/21 09:30 BP 164/76 02/12/21 07:46 Pulse Ox 94 L 02/12/21 07:46 Intake & Output 02/11/21 02/12/21 02/12/21 18:59 06:59 18:59 Intake Total 1610 360 Balance 1610 360 Intake: Intake, IV Titration 1250 Amount Sodium Chloride 0.9% 1, 1200 000 ml @ 100 mls/hr IV . Q10H [facility] Rx#:[id number] cefTRIAXone 2 gm In 50 Sodium Chloride 0.9% 50 ml @ 100 mls/hr IVPB ONCE ONE Rx#:[id number] Oral 360 360 Other: Voiding Method Toilet Toilet # Voids 3 2 # Bowel Movements 1 - Exam PHYSICAL EXAMINATION: GENERAL: The patient is alert and oriented x3, not in any acute distress. Well developed, well nourished. HEENT: Pupils are round and equally reacting to light. EOMI. No scleral icterus. No conjunctival pallor. Normocephalic, atraumatic. No pharyngeal erythema. No thyromegaly. CARDIOVASCULAR: S1 and S2 present. No murmurs, rubs, or gallops. PULMONARY: Chest is clear to auscultation, no wheezing or crackles. ABDOMEN: Soft, nontender, nondistended, normoactive bowel sounds. No palpable organomegaly. MUSCULOSKELETAL: No joint swelling or deformity. EXTREMITIES: No cyanosis, clubbing, or pedal edema. NEUROLOGICAL: Gross neurological examination did not reveal any focal deficits. SKIN: No rashes. - Labs CBC & Chem 7: 02/12/21 05:54 02/12/21 05:54 Labs: Abnormal Lab Results - Last 24 Hours (Table) 02/11/21 02/11/21 02/12/21 Range/Units 05:45 16:42 05:54 RBC 4.38 L (4.40-5.60) X 10*6/uL MPV 12.9 H (9.5-12.2) fL Sodium (135-145) mmol/L Carbon Dioxide (21.6-31.8) mmol/L Anion Gap (4.00-12.00) mmol/L Glucose (70-110) mg/dL POC Glucose (mg/dL) 111 H (75-99) mg/dL Hemoglobin A1c 6.3 H (4.0-6.0) % Calcium (8.7-10.3) mg/dL 02/12/21 02/12/21 Range/Units 05:54 07:01 RBC (4.40-5.60) X 10*6/uL MPV (9.5-12.2) fL Sodium 129 L (135-145) mmol/L Carbon Dioxide 19.5 L (21.6-31.8) mmol/L Anion Gap 12.50 H (4.00-12.00) mmol/L Glucose 112 H (70-110) mg/dL POC Glucose (mg/dL) 100 H (75-99) mg/dL Hemoglobin A1c (4.0-6.0) % Calcium 7.6 L (8.7-10.3) mg/dL Microbiology - Last 24 Hours (Table) 02/10/21 14:00 Blood Culture - Preliminary Blood No Growth after 24 hours 02/10/21 13:38 Blood Culture - Preliminary Blood No Growth after 24 hours Assessment and Plan Plan: Community-acquired pneumonia and severe sepsis secondary to pneumonia: Patient will be continued on IV fluids , Rocephin and azithromycin which will be continued blood cultures sputum cultures are pending. -Hypovolemic hyponatremia: -Anion gap metabolic acidosis secondary to sepsis lactic acidosis improved lactic acid now -Elevated blood sugars , hemoglobin A1c is only 6.3 consistent with prediabetes. Her blood sugars are probably transmitted secondary to sepsis -Mild acute renal failure secondary to sepsis improved -Hypertension- -DVT prophylaxis with Lovenox GI prophylaxis with Pepcid
[2021-02-12] MEDS: CITALOPRAM HYDROBROMIDE 10 MG TAB PO SCH (14:21)
[2021-02-12 14:32] VITALS: RESP 18
[2021-02-12 16:57] LABS: Glucose,Whole Blood 130 mg/dL (75-99)
[2021-02-12 20:32] LABS: Glucose,Whole Blood 98 mg/dL (75-99)
[2021-02-13] MEDS: SODIUM CHLORIDE 0.9% 1,000 ML IV SCH ×2 (03:24→11:28)
[2021-02-13 06:55] LABS: Glucose,Whole Blood 114 mg/dL (75-99)
[2021-02-13] MEDS: INSULIN ASPART (NovoLOG) 100 UNIT/ML VIAL SQ SCH ×2 (07:15→11:28)
[2021-02-13] MEDS: AZITHROMYCIN 500 MG TAB PO SCH (07:19)
[2021-02-13] MEDS: FAMOTIDINE 20 MG TAB PO SCH (07:19)
[2021-02-13] MEDS: METOPROLOL SUCCINATE (ER) 50 MG TAB.ER.24H PO SCH (07:19)
[2021-02-13] MEDS: ENOXAPARIN 40 MG/0.4 ML SYRINGE SQ SCH (07:20)
[2021-02-13] MEDS: CITALOPRAM HYDROBROMIDE 10 MG TAB PO SCH (07:20)
[2021-02-13 11:13] LABS: Glucose,Whole Blood 132 mg/dL (75-99)
[2021-02-13 11:53] LABS: HCT 39.7 % (39.6-50.0); HGB 13.5 g/dL (13.0-17.0); MCH 30.6 pg (27.0-32.0); Mean Platelet Volume 12.7 fL (9.5-12.2); Platelet Count 146 X 10*3/uL (140-440); RBC 4.41 X 10*6/uL (4.40-5.60); RDW 14.5 % (11.5-14.5); WBC 6.17 X 10*3/uL (4.50-10.00)
[2021-02-13 11:59] LABS: African American GFR (CKD) 113.4 (60.0-200.0); Anion Gap 10.4 mmol/L (4.00-12.00); BUN/Creat Ratio 15.56 Ratio (12.00-20.00); Calcium 7.6 mg/dL (8.7-10.3); Carbon Dioxide 21.6 mmol/L (21.6-31.8); Non-African American GFR(CKD) 97.9 (60.0-200.0); Potassium 3.7 mmol/L (3.5-5.5)
[2021-02-13 13:53] VITALS: BP 150/76; PULSE 87; TEMP 98.4
--- NOTE | 2021-02-13 15:36 | P.DS ---
Providers Date of admission: 02/10/21 14:15 Attending physician: Jane Flores Primary care physician: Nico Denise [facility] Course: Patient is admitted for community-acquired pneumonia 50-year-old male came in with my some altered mental status and found to have fever. Patient was limited confused when he came to ER. Patient the did not show up to work for couple days after which his boss sent to someone to check came and patient was found to be extremely weak bit confused and drowsy and sleeping all the time. Patient denied any cough, but was having significant generalized weakness. Patient denied any shortness of breath or chest pain. Patient had a chest x-ray which showed retrocardiac short of consistent with the pneumonia. Patient had high-grade fever. Patient was vaccinated for Covid, Covid 19 PCR was negative. 02/11/2021 Patient is still having fevers although patient is only having low-grade fever yesterday patient'S creatinine went up discontinuing ibuprofen which was started in ER yesterday. Patient will be switched to Rocephin 2 g we'll continue with azithromycin. So far sputum cultures and blood cultures are negative. Patient although overall feels better 02/12/2021 Patient continues to have fever today patient will be continued on IV antibiotics we'll reassess him tomorrow. Patient's creatinine improved sodium is down to 129 continue with IV fluids and will reassess basic metabolic profile and CBC tomorrow. Blood cultures are so far negative sputum cultures were not obtained 02/13/2021 Patient's fever improved patient is clinically doing well from a pneumonia perspective white blood cell count improved. Patient's serum sodium although remained low at 129 patient has been drinking lots of water for last couple days and is a possibility of SIADH from lung infection. Patient was asked to restrict his free water intake to 1500 mL a day repeat basic metabolic profile will be obtained and patient will be referred to nephrology patient will closely follow with primary care physician Dr. Walsh as an outpatient. PHYSICAL EXAMINATION: GENERAL: The patient is alert and oriented x3, not in any acute distress. Well developed, well nourished. HEENT: Pupils are round and equally reacting to light. EOMI. No scleral icterus. No conjunctival pallor. Normocephalic, atraumatic. No pharyngeal erythema. No thyromegaly. CARDIOVASCULAR: S1 and S2 present. No murmurs, rubs, or gallops. PULMONARY: Chest is clear to auscultation, no wheezing or crackles. ABDOMEN: Soft, nontender, nondistended, normoactive bowel sounds. No palpable organomegaly. MUSCULOSKELETAL: No joint swelling or deformity. EXTREMITIES: No cyanosis, clubbing, or pedal edema. NEUROLOGICAL: Gross neurological examination did not reveal any focal deficits. SKIN: No rashes. Assessment and Plan Plan: Community-acquired pneumonia and severe sepsis secondary to pneumonia: Improved symptoms and patient is being discharged on Ceftin and his demise -IPO natremia: Most probably secondary to excess free water intake and may be a competent of SIADH from pneumonia -Anion gap metabolic acidosis on admission secondary to sepsis lactic acidosis improved -Elevated blood sugars , hemoglobin A1c is only 6.3 consistent with prediabetes. Patient blood sugars are elevated secondary to pneumonia presently well controlled -Mild acute renal failure secondary to sepsis improved -Hypertension- -Depression patient was started on citalopram Plan - Discharge Summary Discharge Rx Participant: Yes New Discharge Prescriptions: New Cefuroxime Axetil [Ceftin] 500 mg PO BID 1 Days #14 tab Azithromycin [Zithromax] 500 mg PO DAILY #3 tab Citalopram Hydrobromide [CeleXA] 10 mg PO DAILY #30 tab Famotidine [Pepcid] 20 mg PO BID #30 tab Continue Metoprolol Succinate [Toprol XL] 50 mg PO DAILY Discharge Medication List Metoprolol Succinate [Toprol XL] 50 mg PO DAILY 02/10/21 [History] Azithromycin [Zithromax] 500 mg PO DAILY #3 tab 02/13/21 [Rx] Cefuroxime Axetil [Ceftin] 500 mg PO BID 1 Days #14 tab 02/13/21 [Rx] Citalopram Hydrobromide [CeleXA] 10 mg PO DAILY #30 tab 02/13/21 [Rx] Famotidine [Pepcid] 20 mg PO BID #30 tab 02/13/21 [Rx] Follow up Appointment(s)/Referral(s): Betsy Olivarez MD [STAFF PHYSICIAN] - 1 Week (office closed. patient to make) Sanjay Walsh MD [Primary Care Provider] - 02/16/21 2:30 pm Patient Instructions/Handouts: Pneumonitis (DC), Fluid Restriction (DC) Activity/Diet/Wound Care/Special Instructions: Fluid restriction to 1500 mL per day. I Discharge Disposition: HOME SELF-CARE
== END 2021-02-13 16:28 | disposition home or self-care (01) | DRG 871 ==
LOC: EC 12:13 → 4SSUR 14:15
PROVIDERS: ADMIT Internal Medicine; ATTEND Internal Medicine
DX: A41.9 Sepsis, unspecified organism (principal); J18.9 Pneumonia, unspecified organism; E22.2 Syndrome of inappropriate secretion of antidiuretic hormone; E87.2 Acidosis; N17.9 Acute kidney failure, unspecified; E86.1 Hypovolemia; F32.9 Major depressive disorder, single episode, unspecified; I10 Essential (primary) hypertension; R65.20 Severe sepsis without septic shock; R73.03 Prediabetes; Z20.822 Contact with and (suspected) exposure to COVID-19; Z79.899 Other long term (current) drug therapy; Z90.89 Acquired absence of other organs
CPT/HCPCS: 36415; 70450; 71045; 71046; 80048; 80053; 81001; 83036; 83605; 85025; 85027; 85610; 85730; 87040; 87502; 87635; 93005; 96361; 96374; 99285

== ENCOUNTER → 2021-02-16 | Outpatient (CLI) | payer BC ==
[2021-02-16 19:50] LABS: African American GFR (CKD) 125.8 (60.0-200.0); Anion Gap 8.1 mmol/L (4.00-12.00); BUN/Creat Ratio 12.86 Ratio (12.00-20.00); Calcium 8.1 mg/dL (8.7-10.3); Carbon Dioxide 26.9 mmol/L (21.6-31.8); Non-African American GFR(CKD) 108.5 (60.0-200.0); Potassium 4.1 mmol/L (3.5-5.5)
== END | disposition home or self-care (01) ==
LOC: LABWHC1 11:18
PROVIDERS: ATTEND Internal Medicine
DX: A41.9 Sepsis, unspecified organism (principal); J18.9 Pneumonia, unspecified organism
CPT/HCPCS: 36415; 80048

== ENCOUNTER → 2021-02-20 | Outpatient (CLI) | payer BC ==
[2021-02-20 11:59] LABS: Ionized Calcium 4.9 mg/dL (4.5-5.3)
[2021-02-20 12:06] LABS: Calcium 8.9 mg/dL (8.4-10.2)
== END | disposition home or self-care (01) ==
LOC: LABWHC1 10:41
PROVIDERS: ATTEND Internal Medicine
DX: E83.51 Hypocalcemia (principal)
CPT/HCPCS: 36415; 82306; 82310; 82330